=== PATIENT | male | born 1985 | race Caucasian/White ===

== ENCOUNTER 2022-10-12 20:22 | Inpatient (IN) | payer BC, OTHER ==
[~2022-10-12] VITALS: Ht 188 cm; Wt 145.1 kg
[2022-10-12] MEDS ORDERED: ONDANSETRON HCL INJ 2MG/ML 2ML 2 MG/ML VIAL ONE (21:02)
[2022-10-12] MEDS ORDERED: KETOROLAC TROMETHAMINE 30 MG/ML VIAL IV STA (21:08)
[2022-10-12] MEDS ORDERED: SODIUM CHLORIDE 0.9% 1000ML 1,000 ML IV STA ×2 (21:08→22:41)
[2022-10-12] MEDS ORDERED: ONDANSETRON HCL INJ 2MG/ML 2ML 2 MG/ML VIAL IV STA (21:21)
[2022-10-12 21:42] LABS: ALBUMIN 4.3 g/dL (3.5-5.0); ALBUMIN/GLOBULIN RATIO 1.2 (0.8-2.0); ANION GAP 18.9 mmol/L (8-16); CREATININE, SERUM 1.16 mg/dL (0.72-1.25); POTASSIUM 3.9 mmol/L (3.5-5.1)
[2022-10-12 21:45] LABS: BASOPHILS # (AUTO) 0.1 (0.0-0.1); BASOPHILS % 0.5 % (0.0-1.0); EOSINOPHILS % 0.2 % (0.0-6.0); LYMPHOCYTES # (AUTO) 0.9 (1.0-3.2); LYMPHOCYTES % 6.7 % (18.0-39.1); MEAN CORPUSCULAR HEMOGLOBIN 31.5 pg (28-32); MEAN CORPUSCULAR HGB CONC 35.3 g/dL (31-35); MEAN CORPUSCULAR VOLUME 89.2 fL (81-99); MONOCYTES # (AUTO) 0.8 (0.2-0.8); NEUTROPHILS % 86.3 % (38.7-80.0); PLATELET COUNT 299 x10e3/uL (140-360); RED BLOOD COUNT 5.72 x10e6/uL (4.3-5.7); RED CELL DISTRIBUTION WIDTH 12.4 % (11.7-14.4)
[2022-10-12] MEDS ORDERED: Morphine 4mg INJECTION 4 MG/ML INJ IV STA (22:22)
[2022-10-12 23:03] LABS: CLARITY,URINE SL CLOUDY (CLEAR); COLOR,URINE AMBER (YELLOW); KETONES,URINE 1+ (NEGATIVE); LEUKOCYTE ESTERASE ,URINE NEGATIVE (NEGATIVE); NITRITE,URINE POSITIVE (NEGATIVE); PROTEIN,URINE DIPSTICK 2+ (NEGATIVE); URINE UROBILINOGEN 0.2 mg/dL (0.2 - 1)
[2022-10-12 23:09] LABS: BACTERIA,URINE MODERATE /HPF; EPITHELIAL CELLS,URINE RARE /LPF; MUCUS,URINE MODERATE (RARE); WBC,URINE (MAN) 0-5 /HPF (0-5)
[2022-10-12] MEDS ORDERED: PROMETHAZINE 25MG/ NS 50ML (IV) IV STA (23:17)
[2022-10-12] MEDS ORDERED: IOPAMIDOL 370 MG/ML 100 ML INFUS..BTL INJ ONE (23:48)
[2022-10-13] VITALS (7 sets, daily range): BP systolic 125–152; BP diastolic 79–103
[2022-10-13] MEDS: SODIUM CHLORIDE 0.9% 1000ML 1,000 ML IV SCH ×3 (03:00→22:00)
[2022-10-13] MEDS ORDERED: DEXTROSE 50% SYRINGE 50 ML IV PRN (08:15)
[2022-10-13] MEDS ORDERED: ACETAMINOPHEN 325 MG TAB PO PRN (08:15)
[2022-10-13] MEDS ORDERED: HYDRALAZINE HCL 20 MG/ML VIAL IV PRN (08:15)
[2022-10-13] MEDS: INSULIN LISPRO 100 UNIT/1 ML 3ML VIAL SQ SCH ×3 (11:17→21:00)
[2022-10-13] MEDS: LISINOPRIL 10 MG TAB PO SCH (11:21)
[2022-10-13] MEDS: ONDANSETRON HCL INJ 2MG/ML 2ML 2 MG/ML VIAL IV PRN (16:51)
[2022-10-13] MEDS: Morphine 4mg INJECTION 4 MG/ML INJ IV PRN ×2 (16:51→23:10)
[2022-10-13] MEDS: METOCLOPRAMIDE HCL 10 MG/2ML VIAL IV SCH (23:10)
[2022-10-14] VITALS (8 sets, daily range): BP systolic 126–159; BP diastolic 75–94
[2022-10-14 05:57] LABS: BASOPHILS # (AUTO) 0.1 (0.0-0.1); BASOPHILS % 1.1 % (0.0-1.0); EOSINOPHILS # (AUTO) 0.3 (0.0-0.4); EOSINOPHILS % 5.1 % (0.0-6.0); LYMPHOCYTES # (AUTO) 1.9 (1.0-3.2); LYMPHOCYTES % 33.9 % (18.0-39.1); MEAN CORPUSCULAR HGB CONC 33.3 g/dL (31-35); MONOCYTES # (AUTO) 0.8 (0.2-0.8); MONOCYTES % 13.4 % (4.4-11.3); NEUTROPHILS # (AUTO) 2.6 (2.1-6.9); NEUTROPHILS % 46.1 % (38.7-80.0); PLATELET COUNT 197 x10e3/uL (140-360); RED BLOOD COUNT 4.84 x10e6/uL (4.3-5.7); RED CELL DISTRIBUTION WIDTH 12.6 % (11.7-14.4)
[2022-10-14 06:20] LABS: ALBUMIN 3.6 g/dL (3.5-5.0); ALBUMIN/GLOBULIN RATIO 1.2 (0.8-2.0); ANION GAP 14.9 mmol/L (8-16); CALCIUM 8.4 mg/dL (8.4-10.2); CREATININE, SERUM 0.8 mg/dL (0.72-1.25); POTASSIUM 3.9 mmol/L (3.5-5.1)
[2022-10-14] MEDS: METOCLOPRAMIDE HCL 10 MG/2ML VIAL IV SCH ×4 (06:23→18:01)
[2022-10-14 06:34] LABS: CHOL/HDL RATIO 8.8 (3.9-4.7)
[2022-10-14] MEDS: INSULIN LISPRO 100 UNIT/1 ML 3ML VIAL SQ SCH ×4 (07:30→18:03)
[2022-10-14] MEDS: SODIUM CHLORIDE 0.9% 1000ML 1,000 ML IV SCH ×2 (07:45→23:52)
[2022-10-14] MEDS: LISINOPRIL 10 MG TAB PO SCH ×4 (09:00→17:57)
[2022-10-14] MEDS ORDERED: HYDRALAZINE HCL 20 MG/ML VIAL IV PRN (09:30)
[2022-10-14] MEDS: Morphine 4mg INJECTION 4 MG/ML INJ IV PRN ×2 (13:28→21:38)
[2022-10-14] MEDS: ONDANSETRON HCL INJ 2MG/ML 2ML 2 MG/ML VIAL IV PRN ×2 (13:28→21:38)
[2022-10-15] VITALS: BP 125/93
[2022-10-15 03:49] VITALS: BP 143/91
[2022-10-15] MEDS: METOCLOPRAMIDE HCL 10 MG/2ML VIAL IV SCH ×3 (05:20→17:24)
[2022-10-15] MEDS ORDERED: BUPIVACAINE HCL 0.5% INJ 30 ML VIAL INJ ONE (06:42)
[2022-10-15] MEDS ORDERED: HYDROCODONE/APAP 5MG-325MG TAB PO PRN (07:45)
[2022-10-15] MEDS ORDERED: ONDANSETRON HCL INJ 2MG/ML 2ML 2 MG/ML VIAL IV PRN (07:45)
[2022-10-15] MEDS ORDERED: HYDROMORPHONE 1MG/1ML INJ ONE (08:11)
[2022-10-15 09:10] VITALS: BP 132/88
[2022-10-15] MEDS: LISINOPRIL 10 MG TAB PO SCH ×2 (09:41→17:24)
[2022-10-15] MEDS: Morphine 4mg INJECTION 4 MG/ML INJ IV PRN (09:46)
[2022-10-15] MEDS: ONDANSETRON HCL INJ 2MG/ML 2ML 2 MG/ML VIAL IV PRN (09:47)
[2022-10-15] MEDS: INSULIN LISPRO 100 UNIT/1 ML 3ML VIAL SQ SCH ×4 (09:52→21:19)
[2022-10-15 12:00] VITALS: BP 126/90
[2022-10-15] MEDS ORDERED: ONDANSETRON HCL INJ 2MG/ML 2ML 2 MG/ML VIAL ONE (13:45)
[2022-10-15] MEDS ORDERED: SUCCINYLCHOLINE CHLORIDE 20 MG/ML 10ML VIAL ONE (13:45)
[2022-10-15] MEDS ORDERED: ROCURONIUM BROMIDE 10 MG/ML 5ML VIAL IV ONE (13:45)
[2022-10-15] MEDS ORDERED: LIDOCAINE HCL 2% LOCAL INJ 5 ML SDV VIAL INJ ONE (13:45)
[2022-10-15] MEDS ORDERED: PROPOFOL IV EMULSION 10 MG/ML 20 ML VIAL ONE (13:45)
[2022-10-15] MEDS ORDERED: POVIDONE IODINE 0.05% 0.05 % ML PO ONE (13:45)
[2022-10-15] MEDS ORDERED: NEOSTIGMINE 1 MG/ML 10ML VIAL ONE (13:45)
[2022-10-15] MEDS ORDERED: METOCLOPRAMIDE HCL 10 MG/2ML VIAL ONE (13:45)
[2022-10-15] MEDS ORDERED: SEVOFLURANE INHAL SOLN 250 ML PEN BTL ONE (13:45)
[2022-10-15] MEDS ORDERED: KETOROLAC TROMETHAMINE 30 MG/ML VIAL ONE (13:45)
[2022-10-15] MEDS ORDERED: GLYCOPYRROLATE INJ 0.2 MG/ML VIAL ONE (13:45)
[2022-10-15] MEDS ORDERED: FENTANYL CITRATE/PF 100MCG/2 ML INJ ONE (15:11)
[2022-10-15] MEDS ORDERED: MIDAZOLAM HCL 2 MG/2 ML VIAL ONE (15:11)
[2022-10-15 16:19] VITALS: BP 128/101
[2022-10-15] MEDS: SODIUM CHLORIDE 0.9% 1000ML 1,000 ML IV SCH (17:22)
[2022-10-15] MEDS: HYDROCODONE/APAP 10MG-325MG TAB PO PRN (19:10)
[2022-10-15 20:00] VITALS: BP 131/88
[2022-10-16] VITALS: BP 117/61
[2022-10-16] MEDS: METOCLOPRAMIDE HCL 10 MG/2ML VIAL IV SCH ×3 (00:41→12:00)
[2022-10-16] MEDS: Morphine 4mg INJECTION 4 MG/ML INJ IV PRN (00:52)
[2022-10-16 04:00] VITALS: BP 127/73
[2022-10-16] MEDS: SODIUM CHLORIDE 0.9% 1000ML 1,000 ML IV SCH ×2 (06:33→08:45)
[2022-10-16 07:54] VITALS: BP 120/82
[2022-10-16] MEDS: HYDROCODONE/APAP 10MG-325MG TAB PO PRN ×2 (08:48→12:18)
[2022-10-16] MEDS: LISINOPRIL 10 MG TAB PO SCH (08:49)
[2022-10-16] MEDS: INSULIN LISPRO 100 UNIT/1 ML 3ML VIAL SQ SCH ×2 (08:53→12:20)
[2022-10-16] MEDS ORDERED: OZEMPIC0.25 MG/0. SC (11:48)
[2022-10-16] MEDS ORDERED: ZESTRIL10 MG PO (11:51)
[2022-10-16] MEDS ORDERED: ONDANSETRON ODT4 MG PO (11:52)
[2022-10-16] MEDS ORDERED: OMEPRAZOLE40 MG PO (11:53)
[2022-10-16] MEDS ORDERED: tylenol 3 PO (11:54)
[2022-10-16] MEDS ORDERED: GLUCOTROL XL5 MG PO (11:55)
[2022-10-16] MEDS ORDERED: FARXIGA10 MG PO (11:57)
[2022-10-16 12:01] VITALS: BP 122/90
== END 2022-10-16 12:42 | disposition home or self-care (01) | DRG 417 ==
LOC: ER 20:37 → ERHOLD 10-13 00:20 → MED/SURG 10-13 05:11
PROVIDERS: ADMIT Internal Medicine; ATTEND Internal Medicine
PROC: 0FT44ZZ Resection of Gallbladder, Percutaneous Endoscopic Approach (ICD-10-PCS; principal; 2022-10-13)
DX: K81.0 Acute cholecystitis (principal); K72.00 Acute and subacute hepatic failure without coma; Z68.41 Body mass index [BMI] 40.0-44.9, adult; K82.8 Other specified diseases of gallbladder; E66.01 Morbid (severe) obesity due to excess calories; E11.69 Type 2 diabetes mellitus with other specified complication; Z20.822 Contact with and (suspected) exposure to COVID-19
CPT/HCPCS: 0223U; 36415; 74177; 76705; 78227; 80053; 80061; 81001; 82948; 83036; 83605; 83690; 84443; 85025; 87040; 88304; 93005; 94799; 99284; A9537; J0330; J1170; J1885; J2001; J2250; J2270; J2405; J2543; J2550; J2710; J2765; J7030; Q9967

== ENCOUNTER → 2023-04-21 | Outpatient (REF) | payer OTHER ==
[~2023-04-21] MED LIST: ATORVASTATIN CA20 MG PO; CEFUROXIME250 MG PO; FARXIGA10 MG PO; GLUCOTROL XL5 MG PO; IBUPROFEN200 MG PO; MONTELUKAST SOD10 MG PO; OMEPRAZOLE40 MG PO; ONDANSETRON ODT4 MG PO; OZEMPIC0.25 MG/0. SC; TRICOR48 MG PO; ZESTRIL10 MG PO; tylenol 3 PO
== END ==
LOC: DX 09:35
PROVIDERS: ATTEND Nurse Practitioner
DX: K59.09 Other constipation (principal); K58.8 Other irritable bowel syndrome
CPT/HCPCS: 74220